=== PATIENT | female | born 1960 | race Caucasian/White ===

== ENCOUNTER 2023-10-09 14:06 | Outpatient (RCR) | payer OTHER ==
[~2023-10-09 14:06] MED LIST: AMITRIPTYLINE H25 MG PO; CRESTOR10 MG PO; FISH OIL 1,2001 EACH PO; LEVOTHYROXINE125 MCG PO; LOESTRIN 24 FE1 EACH PO; NORCO 5-325 TA1 EACH PO; TIZANIDINE HCL4 MG PO
== END 2023-10-21 ==
LOC: OT 14:06
PROVIDERS: ATTEND Plastic Surgery
DX: M19.041 Primary osteoarthritis, right hand (principal)